=== PATIENT | female | born 1960 | race Caucasian/White ===

== ENCOUNTER → 2018-11-03 | Day surgery (SDC) | payer BC | LOC: FRADUS-SUR 12:59 ==

== ENCOUNTER 2022-04-23 04:07 | Day surgery (SDC) | payer BC ==
[2022-04-22 16:47] VITALS: BMI 26.4
[2022-04-23] MEDS ORDERED: LIDOCAINE HCL 2% 100 MG/5 ML DISP.SYRIN ONE (08:09)
[2022-04-23] MEDS ORDERED: MIDAZOLAM HCL 2 MG/2 ML SINGLE DOSE VIAL ONE (08:10)
[2022-04-23] MEDS ORDERED: PROPOFOL 20 ML ONE (08:10)
[2022-04-23] MEDS ORDERED: ceFAZolin SODIUM 1 GM VIAL IVPB ONE (10:15)
[2022-04-23] MEDS ORDERED: KETOROLAC TROMETHAMINE 30 MG/1 ML VIAL ONE (10:18)
[2022-04-23] MEDS ORDERED: ONDANSETRON 4 MG/2 ML VIAL ONE (10:18)
[2022-04-23] MEDS ORDERED: DEXAMETHASONE SOD PHOSPHATE 4 MG/1 ML VIAL ONE (10:18)
[2022-04-23] MEDS ORDERED: ceFAZolin SODIUM 1 GM VIAL ONE (10:18)
[2022-04-23] MEDS ORDERED: oxyCODONE HCL 5 MG TABLET PO PRN ×2 (10:50)
[2022-04-23] MEDS ORDERED: ONDANSETRON 4 MG/2 ML VIAL IVPUSH PRN (10:50)
[2022-04-23] MEDS ORDERED: PROMETHAZINE HCL 25 MG/1 ML VIAL IVPUSH PRN (10:50)
[2022-04-23] MEDS ORDERED: ELECTROLYTE-148 SOLN 1,000 ML IV SCH (11:00)
[2022-04-23] MEDS ORDERED: LACTATED RINGERS SOLUTION 1,000 ML IV SCH (11:00)
[2022-04-23 13:21] VITALS: RESP 16
[2022-04-23 13:25] VITALS: BP 98/64; PULSE 81; TEMP 97.5
== END 2022-04-23 13:20 | disposition home or self-care (01) ==
LOC: JASU-SURG 04:07
PROVIDERS: ATTEND Urology
PROC: 0TC78ZZ Extirpation of Matter from Left Ureter, Via Natural or Artificial Opening Endoscopic (ICD-10-PCS; principal; 2022-04-23 09:00)
PROC: 0T778DZ Dilation of Left Ureter with Intraluminal Device, Via Natural or Artificial Opening Endoscopic (ICD-10-PCS; 2022-04-23 09:00)
DX: N20.1 Calculus of ureter (principal)
CPT/HCPCS: 76000-TC-FY; 94760; C2617